=== PATIENT | female | born 1970 | race Caucasian/White ===

== ENCOUNTER 2018-07-27 06:22 | Emergency (ER) | payer BC ==
[2018-07-27] MEDS ORDERED: LIDOCAINE VISCOUS 2% SOLN 15 ML UDC ONE (06:43)
[2018-07-27] MEDS ORDERED: MAGNE/ALUM HYDROXD 30 ML UCUP ONE (06:43)
[2018-07-27 06:54] LABS: Absolute Lymphocytes (CBC) 1.6 K/uL (0.7-4.9); Absolute Monocytes 1.5 K/uL (0.1-1.3); Absolute Neutrophil 7.1 K/uL (1.8-8.0); Basophils % 0.4 % (0-1.3); Eosinophils % 1.3 % (0-4.4); Hematocrit 42.7 % (36.0-45.0); Lymphocytes % 15.4 % (15.3-44.8); MCH 29.3 pg (27.0-35.0); MCV 85.2 fL (80-100); MPV 9.4 fL (7.6-11.3); Monocytes % 14.7 % (3.3-12.3); RBC Red Blood Cell Count 5.01 M/uL (3.86-4.86)
[2018-07-27] MEDS ORDERED: FENTANYL CITR 100 MCG/2 ML ONE (07:03)
[2018-07-27 07:04] LABS: Urine Blood 1+ (NEG); Urine Glucose NEGATIVE (NEG); Urine Protein NEGATIVE (NEG)
[2018-07-27 07:14] LABS: Protime INR 1.61
[2018-07-27 07:23] LABS: ALT/SGPT 29 U/L (12-78); AST/SGOT 11 U/L (15-37); Albumin 4.1 g/dL (3.4-5.0); Alkaline Phosphatase 64 U/L (45-117); BUN Blood Urea Nitrogen 9 mg/dL (7-18); Bicarbonate 25 mmol/L (21-32); Bilirubin Direct 0.2 mg/dL (0-0.2); Bilirubin Total 0.5 mg/dL (0.2-1.0); CKMB Creatine Kinase MB < 1.0 ng/mL (0.3-3.6); Creatine Phosphokinase 94 U/L (26-192); Glucose Level 229 mg/dL (74-106); NT PRO-BNP 68 pg/mL (<125); Potassium 3.8 mmol/L (3.5-5.1); Protein, Total 7.5 g/dL (6.4-8.2); Sodium Level 138 mmol/L (136-145)
--- NOTE | 2018-07-27 07:58 | RAD REPORT ---
EXAM DESCRIPTION: US - Abdomen Exam Limited - 07/27/2018 7:15 am CLINICAL HISTORY: ABD PAIN<Reason For Exam>ABD PAIN COMPARISON: No comparisons<Comparisons>No comparisons FINDINGS: No gallstones, sludge or other abnormalities within the gallbladder lumen. There is no wal l thickening or pericholecystic fluid. No common duct stone or biliary tree dilatation identified. Partially imaged liver shows diffuse fatty infiltration. IMPRESSION: Normal gallbladder and biliary tree ultrasound. Fatty infiltration of a partially imaged liver.
--- NOTE | 2018-07-27 09:32 | RAD REPORT ---
EXAM DESCRIPTION: RAD - Chest Single View - 07/27/2018 7:21 am CLINICAL HISTORY: CHEST PAIN<Reason For Exam>CHEST PAIN COMPARISON: Chest For Pe Angio dated 12/18/2017<Comparisons> TECHNIQUE: AP portable chest image was obtained 0712 hours . FINDINGS: Lung volumes are low accentuating interstitial markings. Significant change from November i s doubtful. Trachea is midline. No focal mass or consolidation. Failure or volume overload are not betts spected. Heart and vasculature are normal. No measurable pleural effusion and no pneumothorax. No gail ss bony abnormality seen. No acute aortic findings suspected. IMPRESSION: No acute cardiopulmonary process. Interstitial markings are accentuated slightly believed to be shallow inspiration artifact.
[2018-07-27] MEDS ORDERED: SUCRALFATE 1 GM TABLET ONE (10:02)
[2018-07-27 10:32] LABS: CKMB Creatine Kinase MB < 1.0 ng/mL (0.3-3.6); Creatine Phosphokinase 79 U/L (26-192)
--- NOTE | 2018-07-27 10:42 | EDPHYS ---
Physician Documentation [facility] Name: Nat Mcgrath Age: 47 yrs Sex: Female : 1970 Arrival Date: 07/27/2018 Time: 06:23 Bed 17 Private MD: Jose Carlos Keith E ED Physician Bartolo Maradiaga HPI: 07/27 06:56 This 47 yrs old Female presents to ER via Ambulatory with complaints of snw Abdominal Pain. 06:56 The patient presents with abdominal pain in the epigastric area, in the right upper snw quadrant. Onset: The symptoms/episode began/occurred suddenly. The symptoms do not radiate. Associated signs and symptoms: Pertinent positives: nausea. The symptoms are described as crampy. Modifying factors: The symptoms are alleviated by nothing. Severity of pain: At its worst the pain was severe today. The patient has not experienced similar symptoms in the past. It is unknown whether or not the patient has recently seen a physician. pain awoke pt at 0200, continues. 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 - Social history:: Smoking status: Patient uses tobacco products, denies chronic smoking, but will smoke occasionally. - Ebola Screening: : No symptoms or risks identified at this time. ROS: 06:56 Constitutional: Negative for fever, chills, and weight loss, Eyes: Negative for injury, snw pain, redness, and discharge, ENT: Negative for injury, pain, and discharge, Neck: Negative for injury, pain, and swelling, Cardiovascular: Negative for chest pain, palpitations, and edema, Respiratory: Negative for shortness of breath, cough, wheezing, and pleuritic chest pain, Back: Negative for injury and pain, : Negative for injury, bleeding, discharge, and swelling, MS/Extremity: Negative for injury and deformity, Skin: Negative for injury, rash, and discoloration, Neuro: Negative for headache, weakness, numbness, tingling, and seizure, Psych: Negative for depression, anxiety, suicide ideation, homicidal ideation, and hallucinations. 06:56 Abdomen/GI: Positive for abdominal pain, nausea, abdominal cramps, of the epigastric area and right upper quadrant. Exam: 06:51 Head/Face: Normocephalic, atraumatic. Eyes: Pupils equal round and reactive to light, snw extra-ocular motions intact. Lids and lashes normal. Conjunctiva and sclera are non-icteric and not injected. Cornea within normal limits. Periorbital areas with no swelling, redness, or edema. ENT: Nares patent. No nasal discharge, no septal abnormalities noted. Tympanic membranes are normal and external auditory canals are clear. Oropharynx with no redness, swelling, or masses, exudates, or evidence of obstruction, uvula midline. Mucous membranes moist. Neck: Trachea midline, no thyromegaly or masses palpated, and no cervical lymphadenopathy. Supple, full range of motion without nuchal rigidity, or vertebral point tenderness. No Meningismus. Chest/axilla: Normal chest wall appearance and motion. Nontender with no deformity. No lesions are appreciated. Cardiovascular: Regular rate and rhythm with a normal S1 and S2. No gallops, murmurs, or rubs. Normal PMI, no JVD. No pulse deficits. Respiratory: Lungs have equal breath sounds bilaterally, clear to auscultation and percussion. No rales, rhonchi or wheezes noted. No increased work of breathing, no retractions or nasal flaring. 06:51 Back: No spinal tenderness. No costovertebral tenderness. Full range of motion. Skin: Warm, dry with normal turgor. Normal color with no rashes, no lesions, and no evidence of cellulitis. MS/ Extremity: Pulses equal, no cyanosis. Neurovascular intact. Full, normal range of motion. Neuro: Awake and alert, GCS 15, oriented to person, place, time, and situation. Cranial nerves II-XII grossly intact. Motor strength 5/5 in all extremities. Sensory grossly intact. Cerebellar exam normal. Normal gait. Psych: Awake, alert, with orientation to person, place and time. Behavior, mood, and affect are within normal limits. 06:51 Constitutional: The patient appears alert, anxious, diaphoretic, obese. 06:51 Abdomen/GI: Inspection: abdomen appears normal, Bowel sounds: normal, Palpation: moderate abdominal tenderness, severe abdominal tenderness, in the right upper quadrant. Vital Signs: 06:30 BP 169 / 107; Pulse 77; Resp 20; Temp 98.7(O); Pulse Ox 95% on R/A; Weight 104.33 kg ak1 (R); Height 5 ft. 4 in. (162.56 cm) (R); Pain 10/10; 06:51 BP 148 / 94; Pulse 74; Resp 19 S; Pulse Ox 95% on R/A; bs1 07:30 BP 131 / 86; Pulse 63; Resp 16 S; Pulse Ox 96% on R/A; Pain 6/10; jl7 08:30 BP 141 / 87; Pulse 68; Resp 16 S; Pulse Ox 96% on R/A; jl7 09:22 BP 126 / 80; Pulse 65; Resp 16 S; Pulse Ox 95% on R/A; jl7 10:15 BP 133 / 80; Pulse 69; Resp 16 S; Pulse Ox 96% on R/A; Pain 3/10; jl7 11:01 BP 128 / 82; Pulse 64; Resp 16; Pulse Ox 96% ; jl7 06:30 Body Mass Index 39.48 (104.33 kg, 162.56 cm) ak1 MDM: 06:35 Patient medically screened. snw 06:50 Data reviewed: vital signs, nurses notes. Data interpreted: Pulse oximetry: on room air snw is 95 %. Interpretation: hypoxia. Plan: O2 by NC applied. Counseling: I had a detailed discussion with the patient and/or guardian regarding: the historical points, exam findings, and any diagnostic results supporting the discharge/admit diagnosis, the presence of at least one elevated blood pressure reading (>120/80) during this emergency department visit. ED course: Pt sees Dr. Ernandez. Takes Xarelto 20mg, Lexapro 20mg, Atorvastatin 40mg po daily. 09:42 ED course: pain lessened but remains 6/10, po challenge "not sitting well". snw 07/27 06:37 Order name: Basic Metabolic Panel; Complete Time: 07:27 snw 07/27 06:37 Order name: CBC with Diff; Complete Time: 07:05 snw 08/28 06:37 Order name: Ckmb; Complete Time: 07:27 w 07/27 06:37 Order name: CPK; Complete Time: 07:27 snw 07/27 06:37 Order name: LFT's; Complete Time: 07:27 07/27 06:37 Order name: Magnesium; Complete Time: 07:27 snw 07/27 06:37 Order name: NT PRO-BNP; Complete Time: 07:27 07/27 06:37 Order name: PT-INR; Complete Time: 07:27 w 07/27 06:37 Order name: Ptt, Activated; Complete Time: 07:27 snw 07/27 06:37 Order name: Troponin (emerg Dept Use Only); Complete Time: 07:27 snw 07/27 06:40 Order name: Urine Dipstick--Ancillary (enter results); Complete Time: 07:05 07/27 06:40 Order name: Urine --Ancillary (enter results); Complete Time: 07:05 07/27 09:41 Order name: Troponin (emerg Dept Use Only) 07/27 09:41 Order name: CPK 07/27 06:37 Order name: Urine Test (obtain specimen); Complete Time: 06:38 07/27 06:37 Order name: XRAY Chest (1 view); Complete Time: 09:32 07/27 06:37 Order name: EKG; Complete Time: 06:37 07/27 06:37 Order name: Cardiac monitoring; Complete Time: 06:37 07/27 06:37 Order name: EKG - Nurse/Tech; Complete Time: 06:48 07/27 06:37 Order name: IV Saline Lock; Complete Time: 06:48 07/27 06:37 Order name: Labs collected and sent; Complete Time: 06:48 w 07/27 06:55 Order name: US Abdomen Limited; Complete Time: 08:17 snw 07/27 09:41 Order name: Ckmb 07/27 09:42 Order name: Troponin (Emerg Dept Use Only); Complete Time: 10:35 EDMS 07/27 09:42 Order name: Creatine Phosphokinase; Complete Time: 10:35 EDMS 07/27 09:42 Order name: CKMB Creatine Kinase MB; Complete Time: 10:35 EDAL 07/27 10:30 Order name: EKG; Complete Time: 10:31 snw 07/27 06:37 Order name: O2 Per Protocol; Complete Time: 06:37 snw 07/27 06:37 Order name: O2 Sat Monitoring; Complete Time: 06:37 snw 07/27 06:37 Order name: Urine Dipstick-Ancillary (obtain specimen); Complete Time: 06:37 snw Administered Medications: 06:40 Drug: GI Cocktail without - (Maalox Suspension 30 ml, Lidocaine Liquid 2 % 15 ak1 ml) Route: PO; 06:48 Follow up: Response: Pain is decreased ak1 07:09 Drug: fentaNYL (PF) 25 mcg Route: IVP; Site: right antecubital; bs1 07:30 Follow up: Response: No adverse reaction; Pain is decreased jl7 10:02 Drug: CarafATE 1 grams Route: PO; jl7 10:45 Follow up: Response: No adverse reaction; Pain is decreased jl7 Disposition: 07/27/18 10:42 Discharged to Home. Impression: Upper abdominal pain, unspecified. - Condition is Stable. - Discharge Instructions: Abdominal Pain, Adult, Hypertension, Peptic Ulcer. - Prescriptions for Bentyl 20 mg Oral Tablet - take 1 tablet by ORAL route every 6 hours As needed; 20 tablet. Zofran 4 mg Oral Tablet - take 1 tablet by ORAL route every 12 hours As needed; 6 tablet. - Work release form, Medication Reconciliation Form, Thank You Letter, Antibiotic Education, Prescription Opioid Use form. - Follow up: Jose Carlos Keith MD; When: 1 - 2 days; Reason: Recheck today's complaints, Continuance of care, Re-evaluation by your physician. Follow up: Emergency Department; When: As needed; Reason: Worsening of condition. - Problem is new. - Symptoms have improved. Addendum: 07/29/2018 00:56 Co-signature as Attending Physician, Bartolo Maradiaga MD I agree with the assessment and t w4 plan of care. Attestation: The patient's history, exam findings, diagnostics, and a summary of any interventions or procedures was reviewed in detail with Shelly GIBBONS. Signatures: Dispatcher [employer] Fabby Mojicay, HOB MACHINE OPERATOR-C HOB MACHINE OPERATOR-Csnw Yuli Nolen, RN RN ak1 Dhiraj Velarde, RN RN jl7 Sudha Ramirez, RN RN bs1 Bartolo Maradiaga MD MD tw4 Corrections: (The following items were deleted from the chart) 07/27 11:04 10:42 07/27/2018 10:42 Discharged to Home. Impression: Upper abdominal pain, jl7 unspecified. Condition is Stable. Forms are Medication Reconciliation Form, Thank You Letter, Antibiotic Education, Prescription Opioid Use. Follow up: Jose Carlos Keith; When: 1 - 2 days; Reason: Recheck today's complaints, Continuance of care, Re-evaluation by your physician. Follow up: Emergency Department; When: As needed; Reason: Worsening of condition. Problem is new. Symptoms have improved. snw
--- NOTE | 2018-07-27 10:42 | ER ---
Nurse's Notes [facility] Name: Nat Mcgrath Age: 47 yrs Sex: Female : 1970 Arrival Date: 07/27/2018 Time: 06:23 Bed 17 Private MD: Jose Carlos Keith E Diagnosis: Upper abdominal pain, unspecified Presentation: 07/27 06:31 Presenting complaint: Patient states: epigastric pain started at 0200. pt c/o nausea, ak1 denies vomiting. Transition of care: patient was not received from another setting of care. Onset of symptoms was July 27, 2018. Risk Assessment: Do you want to hurt yourself or someone else? Patient reports no desire to harm self or others. Initial Sepsis Screen: Does the patient meet any 2 criteria? No. Patient's initial sepsis screen is negative. Does the patient have a suspected source of infection? No. Patient's initial sepsis screen is negative. Care prior to arrival: None. 06:31 Method Of Arrival: Ambulatory ak1 06:31 Acuity: NATHALIA 3 ak1 Triage Assessment: 06:34 General: Appears in no apparent distress. Behavior is calm, cooperative. Pain: ak1 Complains of pain in epigastric area. EENT: No signs and/or symptoms were reported regarding the EENT system. Neuro: No deficits noted. Cardiovascular: No deficits noted. Respiratory: No deficits noted. GI: Reports upper abdominal pain, nausea. : No signs and/or symptoms were reported regarding the genitourinary system. Derm: No signs and/or symptoms reported regarding the dermatologic system. Musculoskeletal: No signs and/or symptoms reported regarding the musculoskeletal system. 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 - Social history:: Smoking status: Patient uses tobacco products, denies chronic smoking, but will smoke occasionally. - Ebola Screening: : No symptoms or risks identified at this time. Screenin:34 Abuse screen: Denies threats or abuse. Denies injuries from another. Nutritional ak1 screening: No deficits noted. Tuberculosis screening: No symptoms or risk factors identified. Fall Risk None identified. Assessment: 06:49 General: Appears in no apparent distress. uncomfortable, ill, Behavior is calm, bs1 cooperative, appropriate for age. Pain: Complains of pain in epigastric area, right upper abdomen. Neuro: Level of Consciousness is awake, alert, obeys commands, Oriented to person, place, time, situation, Appropriate for age. Cardiovascular: Denies chest pain, shortness of breath, Heart tones S1 S2 present Capillary refill < 3 seconds Patient's skin is warm and dry. Respiratory: Airway is patent Trachea midline Respiratory effort is even, unlabored, Respiratory pattern is regular, symmetrical, Breath sounds are clear bilaterally. GI: Abdomen is round non-distended, Bowel sounds present X 4 quads. Abdomen is tender to palpation in epigastric area and right upper quadrant Reports upper abdominal pain, epigastric pain, nausea, Patient currently denies bloody stool, diarrhea, vomiting. : No signs and/or symptoms were reported regarding the genitourinary system. EENT: No signs and/or symptoms were reported regarding the EENT system. Derm: patient noted to be sweating. Musculoskeletal: Circulation, motion, and sensation intact. Capillary refill < 3 seconds, Range of motion: intact in all extremities. 07:09 Reassessment: Report given to LEONARDO Hearn. bs1 07:20 General: Appears in no apparent distress. uncomfortable, Behavior is calm, cooperative, jl7 appropriate for age. Pain: Complains of pain in right upper quadrant and epigastric area Pain currently is 6 out of 10 on a pain scale. Neuro: Level of Consciousness is awake, alert, obeys commands, Oriented to person, place, time, situation. Cardiovascular: Heart tones S1 S2 present Patient's skin is warm and dry. Respiratory: Airway is patent Respiratory effort is even, unlabored, Respiratory pattern is regular, symmetrical, Breath sounds are clear bilaterally. GI: Abdomen is round non-distended, Bowel sounds present X 4 quads. Abdomen is tender to palpation Reports upper abdominal pain, epigastric pain, nausea, Patient currently denies bloody stool, diarrhea, vomiting. : No signs and/or symptoms were reported regarding the genitourinary system. EENT: No signs and/or symptoms were reported regarding the EENT system. Derm: Skin is pink, warm \T\ dry. no sweating at this time. Musculoskeletal: No signs and/or symptoms reported regarding the musculoskeletal system. 08:30 Reassessment: Patient appears in no apparent distress at this time. Patient and/or jl7 family updated on plan of care and expected duration. Pain level reassessed. Patient is alert, oriented x 3, equal unlabored respirations, skin warm/dry/pink. 09:30 Reassessment: Patient and/or family updated on plan of care and expected duration. Pain jl7 level reassessed. Patient is alert, oriented x 3, equal unlabored respirations, skin warm/dry/pink. 10:45 Reassessment: pt reports symptoms improved, provider notified. jl7 Vital Signs: 06:30 BP 169 / 107; Pulse 77; Resp 20; Temp 98.7(O); Pulse Ox 95% on R/A; Weight 104.33 kg ak1 (R); Height 5 ft. 4 in. (162.56 cm) (R); Pain 10/10; 06:51 BP 148 / 94; Pulse 74; Resp 19 S; Pulse Ox 95% on R/A; bs1 07:30 BP 131 / 86; Pulse 63; Resp 16 S; Pulse Ox 96% on R/A; Pain 6/10; jl7 08:30 BP 141 / 87; Pulse 68; Resp 16 S; Pulse Ox 96% on R/A; jl7 09:22 BP 126 / 80; Pulse 65; Resp 16 S; Pulse Ox 95% on R/A; jl7 10:15 BP 133 / 80; Pulse 69; Resp 16 S; Pulse Ox 96% on R/A; Pain 3/10; jl7 11:01 BP 128 / 82; Pulse 64; Resp 16; Pulse Ox 96% ; jl7 06:30 Body Mass Index 39.48 (104.33 kg, 162.56 cm) ak1 ED Course: 06:23 Patient arrived in ED. ds1 06:23 Jose Carlos Keith MD is Private Physician. ds1 06:28 Sudha Ramirez, LEONARDO is Primary Nurse. bs1 06:30 Arm band placed on Patient placed in an exam room, on a stretcher, on pulse oximetry, ak1 Patient notified of wait time. 06:32 Triage completed. ak1 06:34 Patient has correct armband on for positive identification. Placed in gown. Bed in low ak1 position. Call light in reach. Side rails up X 1. Pulse ox on. NIBP on. 06:35 Shelly Mims FNP-C [facility]. snw 06:35 Bartolo Maradiaga MD is Attending Physician. snw 06:36 Inserted saline lock: 20 gauge in right antecubital area, using aseptic technique. bs1 Blood collected. by me, flushed with 10cc NS. 07:04 US Abdomen Limited In Process Unspecified. EDMS 07:04 Ultrasound completed. aa4 07:17 X-ray completed. Portable x-ray completed in exam room. Patient tolerated procedure sw well. 07:18 XRAY Chest (1 view) In Process Unspecified. EDMS 07:23 Primary Nurse role handed off by Sudha Ramirez RN jl7 07:23 Dhiraj Velarde RN is Primary Nurse. jl7 10:08 Troponin (emerg Dept Use Only) Sent. jl7 10:08 CPK Sent. jl7 10:08 Ckmb Sent. jl7 10:30 EKG done, by clinical tech. reviewed by Shelly GIBBONS Repeat EKG. at1 10:36 Jose Carlos Keith MD is Referral Physician. snw 11:04 No provider procedures requiring assistance completed. IV discontinued, intact, jl7 bleeding controlled, No redness/swelling at site. Pressure dressing applied. Administered Medications: 06:40 Drug: GI Cocktail without - (Maalox Suspension 30 ml, Lidocaine Liquid 2 % 15 ak1 ml) Route: PO; 06:48 Follow up: Response: Pain is decreased ak1 07:09 Drug: fentaNYL (PF) 25 mcg Route: IVP; Site: right antecubital; bs1 07:30 Follow up: Response: No adverse reaction; Pain is decreased jl7 10:02 Drug: CarafATE 1 grams Route: PO; jl7 10:45 Follow up: Response: No adverse reaction; Pain is decreased jl7 Outcome: 10:42 Discharge ordered by . snw 11:04 Discharged to home ambulatory. jl7 11:04 Condition: stable 11:04 Discharge instructions given to patient, family, Instructed on discharge instructions, follow up and referral plans. medication usage, Demonstrated understanding of instructions, follow-up care, medications, Prescriptions given X 2. 11:04 Patient left the ED. jl7 Signatures: Dispatcher [employer] EDMS Shelly Mims, BOX WORKER-C BOX WORKER-Csnw Sánchez Omayra ds1 Isamar Chahal aa4 Isamar Albert, medicine assistant EKG Tat1 Yuli Nolen RN RN ak1 Kala Donald Jahala, RN RN jl7 Sudha Ramirez RN RN bs1 Corrections: (The following items were deleted from the chart) 09:22 07:20 Pain: Denies pain. jlSoha jl7
--- NOTE | 2018-07-27 12:25 | EKG ---
Test Date: 2018-07-27 Test Time: 10:30:21 Plate Keeper: GILBERTO MEASUREMENT RESULTS: Intervals: Rate: 63 HI: 172 QRSD: 94 QT: 428 QTc: 437 Stanley: P: 16 HI: 172 QRS: 37 T: 41 INTERPRETIVE STATEMENTS: Normal sinus rhythm Normal ECG Compared to ECG 07/27/2018 06:40:58 No significant changes Electronically Signed On 07-27-18 12:24:19 CDT by Eliezer Cline
--- NOTE | 2018-07-27 12:26 | EKG ---
Test Date: 2018-07-27 Test Time: 06:40:58 Tower Air Traffic Control Specialist: ARPIT MEASUREMENT RESULTS: Intervals: Rate: 70 [place]: 154 QRSD: 90 QT: 406 QTc: 438 Edelstein: P: 22 [place]: 154 QRS: 41 T: 47 INTERPRETIVE STATEMENTS: Normal sinus rhythm Normal ECG Compared to ECG 03/29/1998 18:20:00 Sinus arrhythmia no longer present Electronically Signed On 07-27-18 12:24:38 CDT by Eliezer Cline
== END 2018-07-27 11:04 | disposition home or self-care (01) ==
LOC: ER 06:22
DX: R10.11 Right upper quadrant pain (principal); E78.5 Hyperlipidemia, unspecified; F32.9 Major depressive disorder, single episode, unspecified; Z79.01 Long term (current) use of anticoagulants; Z72.0 Tobacco use
CPT/HCPCS: 36415; 71045; 76705; 80048; 80076; 81003; 81025; 82550; 82553; 83735; 83880; 84484; 85025; 85610; 85730; 93005; 96374; 99284; J3010

== ENCOUNTER 2023-07-16 00:22 | Emergency (ER) | payer BC ==
[2023-07-16] MEDS ORDERED: ONDANSETRON 4 MG/2 ML VIAL ONE ×2 (00:48→02:44)
[2023-07-16] MEDS ORDERED: MORPHINE 4 MG/ML SYR ONE (00:48)
[2023-07-16] MEDS ORDERED: NA CHLORIDE 0.9% 1,000 ML ONE (00:48)
[2023-07-16 01:02] LABS: Absolute Lymphocytes (CBC) 3.9 K/uL (0.7-4.9); Hematocrit 39.1 % (36.0-45.0); Lymphocytes % 47.9 % (15.3-44.8); MCV 84.7 fL (80-100); MPV 9.1 fL (7.6-11.3); Platelets 230 thou/uL (152-406); RBC Red Blood Cell Count 4.61 M/uL (3.86-4.86)
[2023-07-16] MEDS ORDERED: HYDROMORPHONE HCL 1 MG/ML INJ ONE (01:03)
[2023-07-16 01:09] LABS: Albumin 3.9 g/dL (3.4-5.0); Bilirubin Total 0.6 mg/dL (0.2-1.0); Protein, Total 6.9 g/dL (6.4-8.2)
--- NOTE | 2023-07-16 02:22 | EDPHYS ---
Physician Documentation [facility] Name: Nat Mcgrath Age: 52 yrs Sex: Female : 1970 Arrival Date: 07/16/2023 Time: 00:22 Bed 11 Private MD: Srikanth Funez ED Physician Jaguar Ferraro HPI: 07/16 00:37 This 52 yrs old Female presents to ER via Wheelchair with complaints of Back Pain, kb Nausea, Urinary Problem. 00:37 The patient presents with pain that is acute. The symptoms are located in the right low kb back. The pain does not radiate. The problem was sustained without known cause. Onset: The symptoms/episode began/occurred just prior to arrival. Modifying factors: The patient symptoms are alleviated by nothing, the patient symptoms are aggravated by any movement. Associated signs and symptoms: Pertinent positives: small amounts. Severity of symptoms: At their worst the symptoms were moderate, in the emergency department the symptoms are unchanged. The patient has not experienced similar symptoms in the past. The patient has not recently seen a physician. Historical: - Allergies: 00:35 No Known Allergies; hb - Home Meds: 00:35 Ozempic subcutaneous [Active]; Xarelto 20 mg Oral tab 1 tab once daily [Active]; hb Lexapro 20 mg Oral tab 1 tab once daily [Active]; atorvastatin Oral [Active]; Metformin Oral [Active]; - PMHx: 00:35 Depression; factor five; Hyperlipidemia; hb - Immunization history:: Adult Immunizations up to date. - Social history:: Smoking status: Patient denies any tobacco usage or history of. ROS: 00:37 Constitutional: Negative for fever, chills, and weight loss. kb 00:37 Back: Positive for pain at rest, pain with movement. 00:37 : Positive for burning with urination. Exam: 00:37 Head/Face: Normocephalic, atraumatic. ENT: Moist Mucous membranes Cardiovascular: kb Regular rate and rhythm with a normal S1 and S2. No gallops, murmurs, or rubs. No pulse deficits. Respiratory: Respirations even and unlabored. No increased work of breathing. Talking in full sentences Abdomen/GI: Soft, non-tender. No distention Back: No spinal tenderness. No costovertebral tenderness. Full range of motion. Skin: Warm, dry with normal turgor. Normal color. MS/ Extremity: Pulses equal, no cyanosis. Neurovascular intact. Full, normal range of motion. Neuro: Awake and alert, GCS 15, oriented to person, place, time, and situation. Moves all extremities. Normal gait. 00:37 Constitutional: The patient appears alert, awake, in obvious pain. Vital Signs: 00:33 BP 150 / 115; Pulse 76; Resp 18; Temp 97.9(TE); Pulse Ox 100% on R/A; Weight 77.11 kg; hb Height 5 ft. 4 in. ; Pain 10/10; 01:00 BP 144 / 112; Pulse 89; Resp 20; Pulse Ox 100% on R/A; Pain 10/10; kl 02:53 BP 124 / 82; Pulse 70; Resp 16; Pulse Ox 99% on R/A; kl 00:33 Body Mass Index 29.18 (77.11 kg, 162.56 cm) hb 00:33 Pain Scale: Adult hb 01:00 Pain Scale: Adult kl MDM: 00:25 Patient medically screened. kb 00:38 Differential diagnosis: strain, fracture, sciatica, UTI, kidney stone. Data reviewed: vital signs, nurses notes. 02:20 Counseling: I had a detailed discussion with the patient and/or guardian regarding the kb historical points, exam findings, and any diagnostic results supporting the discharge/admit diagnosis, lab results, radiology results, the need for outpatient follow up, a urologist, to return to the emergency department if symptoms worsen or persist or if there are any questions or concerns that arise at home. 07/16 00:29 Order name: CBC with Diff; Complete Time: 01: kb 07/16 00:29 Order name: CMP; Complete Time: 01: kb 07/16 00:29 Order name: Lipase; Complete Time: : kb 07/16 00:29 Order name: Urinalysis w/ reflexes; Complete Time: 02:26 kb 07/16 00:29 Order name: CT Stone Protocol kb 07/16 00:29 Order name: IV Saline Lock; Complete Time: 00:43 kb 07/16 00:29 Order name: Labs collected and sent; Complete Time: 00:43 kb Administered Medications: 00:41 Drug: NS 0.9% IV 1000 ml Route: IV; Rate: 1 bolus; Site: right antecubital; kl 02:53 Follow up: IV Status: Completed infusion; IV Intake: 1000ml kl 00:41 Drug: Ondansetron IVP 4 mg Route: IVP; Site: right antecubital; kl 00:45 Follow up: Response: No adverse reaction kl 00:41 Drug: morphine IVP or IV 4 mg Route: IVP; Infused Over: 4 mins; Site: right antecubital;kl 00:45 Follow up: Response: No adverse reaction; Pain is unchanged, physician notified kl 00:56 Drug: HYDROmorphone IVP 1 mg Route: IVP; Site: right antecubital; kl 02:52 Follow up: Response: No adverse reaction; Marked relief of symptoms kl 02:40 Drug: Ondansetron IVP 4 mg Route: IVP; Site: right antecubital; kl 02:53 Follow up: Response: No adverse reaction kl 02:45 Drug: Ketorolac IVP 15 mg Route: IVP; Site: right antecubital; kl 02:53 Follow up: Response: No adverse reaction kl 02:46 Drug: Magnesium Sulfate IVPB 1 grams Route: IVPB; Infused Over: 1 hrs; Site: right kl antecubital; 03:30 Follow up: IV Status: Completed infusion; IV Intake: 25ml kl 02:46 Drug: Flomax PO 0.4 mg Route: PO; kl 02:53 Follow up: Response: No adverse reaction kl 03:20 Drug: [place] PO 10 mg-325 mg 1 tabs Route: PO; kl 03:30 Follow up: Response: No adverse reaction kl Disposition: 03:59 Co-signature as Attending Physician, Jaguar Ferraro MD I agree with the assessment and kdr plan of care. Disposition Summary: 07/16/23 02:21 Discharge Ordered Location: Home Condition: Stable kb Diagnosis - Calculus of kidney with calculus of ureter kb Followup: kb - With: Emergency Department - When: As needed - Reason: Worsening of condition Followup: kb - With: Private Physician - When: 2 - 3 days - Reason: Recheck today's complaints, Continuance of care, Re-evaluation by your physician Followup: kb - With: Mando Hampton MD - When: 2 - 3 days - Reason: Recheck today's complaints Discharge Instructions: - Discharge Summary Sheet kb - Kidney Stones, [id number] kb - Dietary Guidelines to Help Prevent Kidney Stones kb Forms: - Medication Reconciliation Form kb - Thank You Letter kb - Antibiotic Education kb - Prescription Opioid Use kb - Patient Portal Instructions kb - Leadership Thank You Letter kb Prescriptions: - Flomax 0.4 mg Oral capsule - take 1 capsule by ORAL route daily; 10 capsule; Refills: 0, Product Selection kb Permitted - Augmentin 875-125 mg Oral Tablet - take 1 tablet by ORAL route every 12 hours for 10 days; 20 tablet; Refills: 0, kb Product Selection Permitted - Diclofenac Sodium 75 mg Oral tablet,delayed release (DR/EC) - take 1 tablet by ORAL route 2 times per day As needed; 30 tablet; Refills: 0, kb Product Selection Permitted - Tramadol 50 mg Oral Tablet - take 1 tablet by ORAL route every 8 hours as needed; 12 tablet; Refills: 0, kb Product Selection Permitted Signatures: Dispatcher [employer] EDFay Billy, Hortencia Gomez RN RN Jaguar Joseph MD MD kdr Baxter, Heather, RN RN hb Corrections: (The following items were deleted from the chart) 00:36 00:35 Home Meds: Xarelto oral; hb hb 02:21 02:21 Calculus of kidney kb kb
--- NOTE | 2023-07-16 02:22 | ER ---
Nurse's Notes [facility] Name: Nat Mcgrath Age: 52 yrs Sex: Female : 1970 Arrival Date: 07/16/2023 Time: 00:22 Bed 11 Private MD: Srikanth Funez Diagnosis: Calculus of kidney with calculus of ureter Presentation: 07/16 00:33 Chief complaint: Sudden onset severe right flank pain that started 20 mins ago, and hb difficulty urinating x 3-4 hours. Coronavirus screen: At this time, the client does not indicate any symptoms associated with coronavirus-19. Ebola Screen: No symptoms or risks identified at this time. Initial Sepsis Screen: Does the patient meet any 2 criteria? No. Patient's initial sepsis screen is negative. Does the patient have a suspected source of infection? No. Patient's initial sepsis screen is negative. Risk Assessment: Do you want to hurt yourself or someone else? Patient reports no desire to harm self or others. Onset of symptoms was July 16, 2023. 00:33 Method Of Arrival: Wheelchair hb 00:33 Acuity: NATHALIA 3 hb Historical: - Allergies: 00:35 No Known Allergies; hb - Home Meds: 00:35 Ozempic subcutaneous [Active]; Xarelto 20 mg Oral tab 1 tab once daily [Active]; hb Lexapro 20 mg Oral tab 1 tab once daily [Active]; atorvastatin Oral [Active]; Metformin Oral [Active]; - PMHx: 00:35 Depression; factor five; Hyperlipidemia; hb - Immunization history:: Adult Immunizations up to date. - Social history:: Smoking status: Patient denies any tobacco usage or history of. Screenin:00 [facility] ED Fall Risk Assessment (Adult) History of falling in the last 3 months, kl including since admission No falls in past 3 months (0 pts) Confusion or Disorientation No (0 pts) Intoxicated or Sedated No (0 pts) Impaired Gait Yes (1 pt) Mobility Assist Device Used No (0 pt) Altered Elimination No (0 pt) Score/Fall Risk Level 0 - 2 = Low Risk Oriented to surroundings, Maintained a safe environment. Abuse screen: Denies threats or abuse. Nutritional screening: No deficits noted. Tuberculosis screening: No symptoms or risk factors identified. Assessment: 00:37 General: Appears uncomfortable, Behavior is cooperative, anxious, crying. Pain: Pain hb currently is 10 out of 10 on a pain scale. Neuro: Level of Consciousness is awake, alert, obeys commands, Oriented to person, place, time, situation. Cardiovascular: Patient's skin is warm and dry. Respiratory: Respiratory effort is even, unlabored, Respiratory pattern is regular, symmetrical. GI: Reports nausea. : Reports inability to void. EENT: No signs and/or symptoms were reported regarding the EENT system. Derm: Skin is pink, warm \T\ dry. Musculoskeletal: No signs and/or symptoms reported regarding the musculoskeletal system. 01:00 Reassessment: pt continues to c/o severe pain pt repositioned for comfort awaiting kl results. 02:54 Reassessment: Patient appears in no apparent distress at this time. Patient states kl feeling better. Patient states symptoms have improved. Vital Signs: 00:33 BP 150 / 115; Pulse 76; Resp 18; Temp 97.9(TE); Pulse Ox 100% on R/A; Weight 77.11 kg; hb Height 5 ft. 4 in. ; Pain 10/10; 01:00 BP 144 / 112; Pulse 89; Resp 20; Pulse Ox 100% on R/A; Pain 10/10; kl 02:53 BP 124 / 82; Pulse 70; Resp 16; Pulse Ox 99% on R/A; kl 00:33 Body Mass Index 29.18 (77.11 kg, 162.56 cm) hb 00:33 Pain Scale: Adult hb 01:00 Pain Scale: Adult kl ED Course: 00:23 Patient arrived in ED. mr 00:23 Srikanth Funez MD is Private Physician. mr 00:25 Fay Plaza [facility]. kb 00:25 Jaguar Ferraro MD is Attending Physician. kb 00:35 Triage completed. hb 00:37 Arm band placed on. hb 00:42 CBC with Diff Sent. kl 00:42 CMP Sent. kl 00:42 Lipase Sent. kl 00:42 Inserted saline lock: 20 gauge in right antecubital area, using aseptic technique. kl Blood collected. 01:01 Door closed. Noise minimized. Lights dimmed. Warm blanket given. Head of bed lowered. kl 01:36 CT Stone Protocol In Process Unspecified. EDMS 02:21 Mando Hampton MD is Referral Physician. kb 03:30 No provider procedures requiring assistance completed. IV discontinued, intact, kl bleeding controlled, No redness/swelling at site. Pressure dressing applied. Administered Medications: 00:41 Drug: NS 0.9% IV 1000 ml Route: IV; Rate: 1 bolus; Site: right antecubital; kl 02:53 Follow up: IV Status: Completed infusion; IV Intake: 1000ml kl 00:41 Drug: Ondansetron IVP 4 mg Route: IVP; Site: right antecubital; kl 00:45 Follow up: Response: No adverse reaction kl 00:41 Drug: morphine IVP or IV 4 mg Route: IVP; Infused Over: 4 mins; Site: right antecubital;kl 00:45 Follow up: Response: No adverse reaction; Pain is unchanged, physician notified kl 00:56 Drug: HYDROmorphone IVP 1 mg Route: IVP; Site: right antecubital; kl 02:52 Follow up: Response: No adverse reaction; Marked relief of symptoms kl 02:40 Drug: Ondansetron IVP 4 mg Route: IVP; Site: right antecubital; kl 02:53 Follow up: Response: No adverse reaction kl 02:45 Drug: Ketorolac IVP 15 mg Route: IVP; Site: right antecubital; kl 02:53 Follow up: Response: No adverse reaction kl 02:46 Drug: Magnesium Sulfate IVPB 1 grams Route: IVPB; Infused Over: 1 hrs; Site: right kl antecubital; 03:30 Follow up: IV Status: Completed infusion; IV Intake: 25ml kl 02:46 Drug: Flomax PO 0.4 mg Route: PO; kl 02:53 Follow up: Response: No adverse reaction kl 03:20 Drug: [place] PO 10 mg-325 mg 1 tabs Route: PO; kl 03:30 Follow up: Response: No adverse reaction kl Medication: 00:37 VIS not applicable for this client. hb Intake: 02:53 IV: 1000ml; Total: 1000ml. kl 03:30 IV: 25ml; Total: 1025ml. kl Outcome: 02:21 Discharge ordered by . kb 03:31 Discharged to home via wheelchair, with family. kl 03:31 Condition: improved 03:31 Discharge instructions given to patient, Instructed on discharge instructions, follow up and referral plans. medication usage, Demonstrated understanding of instructions, follow-up care, medications, Prescriptions given X 4. 03:31 Patient left the ED. kl Signatures: Dispatcher [employer] Fay Franco, GABRIELE-Amada SUAZO-Hortencia Bateman RN RN kl Rivera, Mary mr Liz Lozano RN RN hb Corrections: (The following items were deleted from the chart) 00:36 00:35 Home Meds: Xarelto oral; hb hb
[2023-07-16 02:25] LABS: Renal Epithelial <5 /HPF (None Seen); Specific Gravity 1.007 (1.005-1.030); Urine Bacteria None Seen /HPF (<20); Urine Bilirubin NEGATIVE (Negative); Urine Blood 1+ (Negative); Urine Clarity Clear (Clear); Urine Color Colorless (Yellow); Urine Glucose NEGATIVE (Negative); Urine Mucus Slight /HPF (None Seen); Urine Protein NEGATIVE (Negative); Urine Urobilinogen Normal (Normal)
[2023-07-16] MEDS ORDERED: TAMSULOSIN 0.4 MG SR CAP ONE (02:43)
[2023-07-16] MEDS ORDERED: KETOROLAC 30 MG/ML INJ ONE (02:44)
[2023-07-16] MEDS ORDERED: Magnesium Sulfate 2gm IVPB 2 G/50 ML BAG IV ONE (02:44)
[2023-07-16] MEDS ORDERED: HYDROCODONE/APAP 10/325 TAB ONE (03:28)
[2023-07-16 03:37] VITALS: TEMP 97.9
[2023-07-16 03:41] VITALS: BP 124/82; O2SAT 99
--- NOTE | 2023-07-16 15:38 | RAD REPORT ---
EXAM DESCRIPTION: CT - Stone Protocol - 07/16/2023 3:20 am CLINICAL HISTORY: FLANK PAIN TECHNIQUE: Contiguous axial images obtained through the abdomen and pelvis without IV contrast. Sagi ttal and coronal reformatted images were provided. This exam was performed according to our departmental dose-optimization program, which includes autom ated exposure control, adjustment of the mA and/or kV according to patient size and/or use of iterati ve reconstruction technique. COMPARISON: None available for comparison. FINDINGS: Lung bases: Clear Liver: Unremarkable Gallbladder and biliary system: Unremarkable Pancreas: Unremarkable Spleen: Unremarkable Adrenals: Unremarkable Kidneys: 4 mm stone in the distal right ureter with proximal right hydroureter and right hydronephros is. Additional small stone in the right kidney measuring less than 3 mm. Gl: Large hiatal hernia. No obstruction. No appreciable mucosal thickening. Appendix: No findings to suggest acute appendicitis. Urinary bladder: Unremarkable Reproductive: Unremarkable as visualized Lymph nodes: No pathologically enlarged lymph nodes. Peritoneum: No focal fluid collection. No free air. Vessels: No abdominal aortic aneurysm. Abdominal wall: Unremarkable Bones: UnremarkableNo acute bony pathology IMPRESSION: 1. 4 mm stone in the distal right ureter with proximal right hydroureter and right hyd ronephrosis. Additional small stone in the right kidney measuring less than 3 mm. 2. Large hiatal hernia. Electronically signed by: Jose Maria Galeas MD 07/16/2023 2:08 AM CDT Due to temporary technical issues with the PACS/Fluency reporting system, reports are being signed by the in house radiologists without review as a courtesy to insure prompt reporting. The interpreting radiologist is fully responsible for the content of the report.
== END 2023-07-16 03:31 | disposition home or self-care (01) ==
LOC: ER 00:22
DX: N20.2 Calculus of kidney with calculus of ureter (principal); E78.5 Hyperlipidemia, unspecified; F32.A Depression, unspecified; D68.51 Activated protein C resistance; Z79.01 Long term (current) use of anticoagulants
CPT/HCPCS: 96365; 96361; 85025; 81001; 36415; 83690; 80053; 76377; 74176; 96375; 99284; J3475; J1170; J2405 ×2; J7030